=== PATIENT | female | born 1970 | race Caucasian/White ===

== ENCOUNTER → 2019-05-05 07:56 | Outpatient (CLI) | payer OTHER, SELFPAY ==
[2019-05-05 09:23] LABS: Hemoglobin A1C% w Est Avg Glu 5.2 % (4.0-6.0)
[2019-05-05 09:39] LABS: Cholesterol 153 mg/dL (140-199); HDL Cholesterol 73 mg/dL (40-60); LDL Cholesterol Calculated 69 mg/dL (<100); Triglycerides 53 mg/dL (35-150)
== END ==
PROVIDERS: PCP Family Medicine; Visit Provider Family Medicine
DX: Z00.00 Encounter for general adult medical examination without abnormal findings (principal)
CPT/HCPCS: 36415; 80061; 83036